=== PATIENT | male | born 1945 | race Caucasian/White ===

== ENCOUNTER 2020-01-17 02:19 | Outpatient (CLI) | payer MEDICARE, SELFPAY ==
[2020-01-17 17:02] LABS: SARS-CoV-2 RNA PCR Negative
== END 2020-01-17 02:20 | disposition home or self-care (01) ==
LOC: ANHCOVIDDT 02:19
PROVIDERS: PCP Family Medicine; Visit Provider Internal Medicine Gastroenterology
DX: Z01.812 Encounter for preprocedural laboratory examination (principal); Z20.828 Contact with and (suspected) exposure to other viral communicable diseases
CPT/HCPCS: 87635; C9803; U0003

== ENCOUNTER 2020-01-19 00:35 | Day surgery (SDC) | payer MEDICARE, SELFPAY ==
[2020-01-09 14:24] VITALS: BMI 42.6
[2020-01-19 06:31] VITALS: BP 149/92; PULSE 70; RESP 16; TEMP 36.7; O2SAT 95; BMI 42.5
[2020-01-19] MEDS: LACTATED RINGERS 1,000 ML 150 ML IV CONT (06:48)
[2020-01-19 06:51] LABS: Glucose Point of Care 166 (65-105)
--- NOTE | 2020-01-19 07:37 | WPDGICN ---
Assessment and Plan Assessment and plan (1) History of colon polyps: Code(s): Z86.010 - Personal history of colonic polyps Status: Acute Assessment and Plan: Surveillance colonoscopy is recommended at this time in 5 years in the future because of his history of adenomatous colon polyps. (2) Morbid obesity with BMI of 40.0-44.9, adult: Code(s): E66.01 - Morbid (severe) obesity due to excess calories; Z68.41 - Body mass index (BMI) 40.0-44.9, adult Status: Acute (3) Diabetes mellitus: Qualifiers: Diabetes mellitus type: type 2 Diabetes mellitus rodent exterminator insulin use: without snf use Diabetes mellitus complication status: with hyperglycemia Qualified Code(s): E11.65 - Type 2 diabetes mellitus with hyperglycemia Code(s): E11.9 - Type 2 diabetes mellitus without complications Status: Acute (4) HTN (hypertension): Qualifiers: Hypertension type: essential hypertension Qualified Code(s): I10 - Essential (primary) hypertension Code(s): I10 - Essential (primary) hypertension Status: Acute GI Consult Note Consult date/time: 01/19/20 07:37 HPI: Dar Corcoran is a 74 year old male Presents for surveillance colonoscopy. Patient has a history of adenomatous colon polyps removed by colonoscopy in 2015. He states that his current weight appetite bowel movements are normal. Denies abdominal pain. He has had no bleeding. He reports that his bowel habits are regular and normal. Review of Systems Review of Systems: All systems reviewed & are unremarkable except as noted in HPI and below PMFSH Past Medical History Medical History BPH (benign prostatic hyperplasia) Diabetes mellitus GERD (gastroesophageal reflux disease) HLD (hyperlipidemia) HTN (hypertension) Mixed hyperlipidemia Morbid obesity with BMI of 40.0-44.9, adult Onychomycosis Primary hypertension Prostate cancer screening Vertigo Surgical History Surgical History H/O prostatectomy Hx of appendectomy Hx of tonsillectomy Family History Family History Father Family history of lung cancer Other Diabetes mellitus Social History Social History Years smoked: 1,990 Smoking status: Former smoker Tobacco type: cigarettes Second hand tobacco smoke exposure: No Smoking end date: 05/11/89 Alcohol intake: never Substance use: never Substance use type: does not use Gender identity (if verbalized by the patient): Male Spiritual care concerns: No Meds Home Medications and Allergies Home Medications Medication Instructions Recorded Confirmed Type atorvastatin 10 mg tablet 10 mg PO DAILY #90 tablet 05/10/19 01/19/20 Rx finasteride 5 mg tablet 5 mg PO DAILY 05/10/19 01/19/20 History losartan 100 1 tablet PO DAILY 05/10/19 01/19/20 History mg-hydrochlorothiazide 12.5 mg tablet solifenacin 5 mg tablet 5 mg PO DAILY 05/10/19 01/19/20 History omeprazole 20 mg tablet,delayed 20 mg PO DAILY #90 tablet 08/24/19 01/19/20 Rx release sitagliptin 50 mg tablet 50 mg PO DAILY #90 tablet 12/22/19 01/19/20 Rx tadalafil 5 mg PO DAILY 01/09/20 01/19/20 History terbinafine HCl 250 mg PO DAILY 01/09/20 01/19/20 History meclizine 25 mg PO PRN PRN 01/19/20 01/19/20 History Allergies Allergy/AdvReac Type Severity Reaction Status Date / Time No Known Allergies Allergy Verified 01/19/20 06:27 Vital Signs Vital Signs - 24 hr 01/19/20 06:31 Temperature 98.0 F Pulse Rate 70 Respiratory Rate 16 Blood Pressure 149/92 H Pulse Oximetry 95 Exam Narrative: Exam Narrative: Physical exam reveals patient to be alert. Vital signs stable. HEENT exam unremarkable. He is anicteric. Lungs are clear to auscultation and percussion. Heart is with
--- NOTE | 2020-01-19 07:52 | WPDANESEPPF ---
Anes - Initial Pre Proc Eval Procedure: Operation Date: 01/19/20 08:00 Proposed Procedures p Screening Colonoscopy - Jerry Rodriguez MD Date/Time: 01/19/20 07:52 Surgeon: Jerry Rodriguez MD Pre Op Diagnosis: hx colon polyp Patient Data Age: 74 Gender: M Height: 1.73 m Weight: 126.7 kg Last Vital Signs Temp 36.7 C 01/19/20 06:31 Pulse 70 01/19/20 06:31 Resp 16 01/19/20 06:31 BP 149/92 H 01/19/20 06:31 Pulse Ox 95 01/19/20 06:31 Allergies Allergy/AdvReac Type Severity Reaction Status Date / Time No Known Allergies Allergy Verified 01/19/20 06:27 Home Medications Medication Instructions Recorded Confirmed Type atorvastatin 10 mg tablet 10 mg PO DAILY #90 tablet 05/10/19 01/19/20 Rx finasteride 5 mg tablet 5 mg PO DAILY 05/10/19 01/19/20 History losartan 100 1 tablet PO DAILY 05/10/19 01/19/20 History mg-hydrochlorothiazide 12.5 mg tablet solifenacin 5 mg tablet 5 mg PO DAILY 05/10/19 01/19/20 History omeprazole 20 mg tablet,delayed 20 mg PO DAILY #90 tablet 08/24/19 01/19/20 Rx release sitagliptin 50 mg tablet 50 mg PO DAILY #90 tablet 12/22/19 01/19/20 Rx tadalafil 5 mg PO DAILY 01/09/20 01/19/20 History terbinafine HCl 250 mg PO DAILY 01/09/20 01/19/20 History meclizine 25 mg PO PRN PRN 01/19/20 01/19/20 History Laboratory Tests 01/19/20 06:42 POC Capillary Glucose 166 mg/dl H mg/dl (65-105) Patient hx anesthesia problems: none Family hx anesthesia problems: none PMFSH Past Medical History Medical History BPH (benign prostatic hyperplasia) Diabetes mellitus GERD (gastroesophageal reflux disease) HLD (hyperlipidemia) HTN (hypertension) Mixed hyperlipidemia Morbid obesity with BMI of 40.0-44.9, adult Onychomycosis Primary hypertension Prostate cancer screening Vertigo Surgical History Surgical History H/O prostatectomy Hx of appendectomy Hx of tonsillectomy Family History Family History Father Family history of lung cancer Other Diabetes mellitus Social History Social History Years smoked: 1,990 Smoking status: Former smoker Tobacco type: cigarettes Second hand tobacco smoke exposure: No Smoking end date: 05/11/89 Alcohol intake: never Substance use: never Substance use type: does not use Gender identity (if verbalized by the patient): Male Spiritual care concerns: No Anes - Eval Final PreProcedure Day of Procedure 01/19/20 07:52 Patient weight: morbidly obese Heart: regular rate and rhythm Lungs: clear to auscultation and normal air movement Airway: Mallampati scale class II Neurological: alert and oriented Last oral intake: >/= 8 hours ASA classification: III Emergent: no Anesthetic plan: proceed Anesthesia type and monitoring: general GIVS Informed Consent: The patient's anesthetic plan and its attendant risks and benefits were discussed with the patient/family/POA. Questions were solicited and answers provided to the satisfaction of the patient/family/POA.
[2020-01-19 08:32] VITALS: BP 157/86; PULSE 67; RESP 21; O2SAT 98
[2020-01-19 08:42] VITALS: BP 163/92; PULSE 66; RESP 23; O2SAT 99
[2020-01-19 08:52] VITALS: BP 160/91; PULSE 66; RESP 21; O2SAT 99
[2020-01-19 09:01] VITALS: BP 157/91; PULSE 59; RESP 21; O2SAT 99
== END 2020-01-19 09:30 | disposition home or self-care (01) ==
PROVIDERS: PCP Family Medicine; Visit Provider Internal Medicine Gastroenterology
PROC: 0DJD8ZZ Inspection of Lower Intestinal Tract, Via Natural or Artificial Opening Endoscopic (ICD-10-PCS; CPT 45378; principal; 2020-01-19 08:00)
DX: Z12.11 Encounter for screening for malignant neoplasm of colon (principal); D12.3 Benign neoplasm of transverse colon; D12.5 Benign neoplasm of sigmoid colon; K57.30 Diverticulosis of large intestine without perforation or abscess without bleeding; K64.8 Other hemorrhoids; I10 Essential (primary) hypertension; E11.9 Type 2 diabetes mellitus without complications; E66.01 Morbid (severe) obesity due to excess calories; Z68.41 Body mass index [BMI] 40.0-44.9, adult; N40.0 Benign prostatic hyperplasia without lower urinary tract symptoms; K21.9 Gastro-esophageal reflux disease without esophagitis; E78.2 Mixed hyperlipidemia; Z87.891 Personal history of nicotine dependence; Z79.84 Long term (current) use of oral hypoglycemic drugs
CPT/HCPCS: 45385; 88305; J2704; J7120

== ENCOUNTER 2020-06-29 15:44 | Outpatient (CLI) | payer MEDICARE, SELFPAY ==
--- NOTE | ~2020-06-29 | US_ITS ---
US venous doppler [facility] DATE: 06/29/2020 16:23 INDICATION: Recent fall with bruising and indurated area along the medial left leg above knee TECHNIQUE: Real-time and color flow imaging and Doppler analysis of the veins of the lower extremitie s COMPARISON: None FINDINGS: The left greater saphenous vein is patent. There is spontaneous and phasic flow and normal augmentation and color flow signal and normal compression of the left common femoral, femoral, poplit eal and peroneal and posterior tibial veins. There is a complex approximately 18 x 23 x 42 mm area medially above the knee at the area of clinical complaint, likely a posttraumatic hematoma. IMPRESSION: No evidence of deep venous thrombosis of left lower extremity Probable hematoma superior medial to the knee Reviewed, dictated and finalized at Location A. Reviewed, dictated and finalized at location B. ERSE ROD ASSEMBLER
== END 2020-06-29 15:45 | disposition home or self-care (01) ==
PROVIDERS: PCP Physician Assistant; Visit Provider Family Medicine
DX: M79.605 Pain in left leg (principal); R60.9 Edema, unspecified
CPT/HCPCS: 93971

== ENCOUNTER 2022-03-12 14:55 | Outpatient (CLI) | payer MEDICARE, SELFPAY ==
[2022-03-12 15:52] LABS: Influenza A QL RT-PCR Negative (Negative); Influenza B QL RT-PCR Negative (Negative); SARS-CoV-2 RNA PCR Negative
== END 2022-03-12 14:56 | disposition home or self-care (01) ==
PROVIDERS: PCP Family Medicine; Visit Provider Physician Assistant
DX: R50.9 Fever, unspecified (principal); Z20.822 Contact with and (suspected) exposure to COVID-19
CPT/HCPCS: 87502; U0003; U0005

== ENCOUNTER 2024-04-13 15:34 | Outpatient (CLI) | payer MEDICARE, SELFPAY ==
--- NOTE | ~2024-04-13 | XR_ITS ---
3 VIEWS LUMBAR SPINE Ordering provider: Shayna Miller MD History: . M54.50 - Low back pain, unspecified . Comparison: None. FINDINGS: VERTEBRAL BODIES: No visible fracture or subluxation. Degenerative changes of the spine. Mild levosco liosis. DISK SPACES: Severe narrowing of the disc L5-S1. Mild narrowing of the disc L4-L5. Facet joint diseas e at the level of L5-S1. SOFT TISSUES: Atherosclerotic changes of the aorta. IMPRESSION: No acute osseous abnormality lumbar spine. Degenerative disc disease at the level of L4-L5 and L5-S1. Reviewed, dictated and finalized at location A. AGE BROKER DEVELOPER
== END 2024-04-13 15:35 | disposition home or self-care (01) ==
LOC: ANHIMG 15:37
PROVIDERS: PCP Family Medicine; Visit Provider Family Medicine
DX: M51.369 Other intervertebral disc degeneration, lumbar region without mention of lumbar back pain or lower extremity pain (principal); M51.379 Other intervertebral disc degeneration, lumbosacral region without mention of lumbar back pain or lower extremity pain
CPT/HCPCS: 72110

== ENCOUNTER 2024-07-05 14:55 | Outpatient (CLI) | payer MEDICARE, SELFPAY ==
[2024-07-05 15:47] LABS: Influenza A QL RT-PCR Positive (Negative); Influenza B QL RT-PCR Negative (Negative); RSV RNA, RT-PCR Negative (Negative); SARS-CoV-2 RNA PCR Negative (Negative)
--- OUTSIDE RECORDS SUMMARY | 2024-07-05 17:23 | XMS_ITS | Referral Summary ---
Author Organization [facility] [employer] Address [address] [place] [address] Care Team Providers Care Hat Blocker Name Role Phone Rodrigo Leal MD Primary Care Provider [phone] Source Comments [facility] [employer],non-owned Affiliates and Associated Physician Practices is amultiple site organization consisting of ambulatory clinics and hospital sitesin [place], [place], [place] and [place]. This disclosure is being madepursuant to the Care Everywhere program and may not contain all information available regarding this patient. Last updated 18.[facility] [employer] Allergies No known active allergies Medications * Be aware that medications may not be up to date on this document. Alwaysverify current medications with the patient. Medication Sig Dispensed Refills Start Date End Date Status OMEPRAZOLE PO Active losartan-hydroCHLOROt hiazide (HYZAAR) 100-12.5 MG tablet Take 1 Tab by mouth once daily Active SIMVASTATIN PO Active solifenacin (VESICARE) 5 MG tablet Take 5 mg by mouth once daily Active FINASTERIDE PO Active tadalafil (CIALIS) 5 MG tablet Take 5 mg by mouth once as needed Active fluticasone propionate (FLONASE) 50 MCG/ACT nasal sprayIndications:Dysf unction of Eustachian tube, bilateral [place] 2 Sprays into each nostril once daily 1 Bottle 12/11/2016 Active Social History Tobacco Use Types Packs/Day Years Used Date Smoking Tobacco: Never Smokeless Tobacco: Never Sex and Gender Information Value Date Recorded Sex Assigned at Not on file Gender Identity Not on file Sexual Orientation Not on file Last Filed Vital Signs Vital Sign Reading Time Taken Comments Blood Pressure 140/80 12/11/2016 2:20 PM CDT Pulse 65 12/11/2016 2:20 PM CDT Temperature 36.7 C (98.1 F) 12/11/2016 2:20 PM CDT Respiratory Rate 16 12/11/2016 2:20 PM CDT Oxygen Saturation 96% 12/11/2016 2:20 PM CDT Inhaled Oxygen Concentration - - Weight 122.5 kg (270 lb) 12/11/2016 2:20 PM CDT Height 175.3 cm (5' 9 ) 12/11/2016 2:20 PM CDT Body Mass Index 39.87 12/11/2016 2:20 PM CDT Plan of Treatment Not on file Care Teams Hat Blocker Relationship Specialty Start Date End Date Rodrigo Leal MD [address] [place] [address] PCP - General Family Medicine 12/11/16
--- OUTSIDE RECORDS SUMMARY | 2024-07-05 17:23 | XMS_ITS | Patient Health Summary ---
Author Organization [facility] [employer] Address [address] [place] [address] Care Team Providers Care Weaving Supervisor Name Role Phone Rodrigo Leal MD Primary Care Provider [phone] Note from [facility],non-owned Affiliates and Associated Physician Practices is amultiple site organization consisting of ambulatory clinics and hospital sitesin [place], [place], [place] and [place]. This disclosure is being madepursuant to the Care Everywhere program and may not contain all information available regarding this patient. Last updated 18.[facility] [employer] Allergies No known active allergies Medications * Be aware that medications may not be up to date on this document. Alwaysverify current medications with the patient. * OMEPRAZOLE PO * losartan-hydroCHLOROthiazide (HYZAAR) 100-12.5 MG tablet Take 1 Tab by mouth once daily * SIMVASTATIN PO * solifenacin (VESICARE) 5 MG tablet Take 5 mg by mouth once daily * FINASTERIDE PO * tadalafil (CIALIS) 5 MG tablet Take 5 mg by mouth once as needed * fluticasone propionate (FLONASE) 50 MCG/ACT nasal spray(Started 12/11/2016) [place] 2 Sprays into each nostril once daily Social History Tobacco Use Types Packs/Day Years [...] Mass Index 39.87 12/11/2016 2:20 PM CDT Procedures * DERMATOPATHOLOGY(Performed 01/23/2011) Results * PATHOLOGY TISSUE FOR DERMATOLOGY (01/23/2011 12:00 AM CDT) Result CASE: PATIENT: CLARA DAILY PATHOLOGIC DIAGNOSIS: 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 Jaret Mims, is 1 slide(s) labeled [id number], [id number]. R/O SCCA. All slides returned. 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 The aggregates are composed of squamoid cells showing variable glycogen vacuolation (pale-staining cytoplasm). In addition, there are strands of similar pale staining cells within a fibrotic stroma. The tumor cells are reactive with CD34 and nonreactive with BerEp4. The lesion is not present at the sampled margin of the specimen. Final Diagnosis performed by Adri Ramsay M.D. Electronically signed 01/27/2011 5:13:15PM [facility] Comment: Performed at: Dermatopathology Laboratory [facility] - Department of Dermatology [address] [place] [address] Phone number: [phone] Toll Free: [phone] FAX: [phone] 01/23/2011 01/23/2011 Jaret Mims MD LAB - PATHOLOGY/CYTO LOGY ORDERABLES [facility] [address] Floor Lab [address] [phone] Care Teams Weaving Supervisor Relationship Specialty Start Date End Date Rodrigo Leal MD [address] [place], [place] [id number] PCP - General Family Medicine 12/11/16
--- OUTSIDE RECORDS SUMMARY | 2024-07-05 17:23 | XMS_ITS | Clinical Summary ---
Author Organization [facility] [employer] Address [address] [place] [address] Care Team Providers Care Matrix Drier Tender Name Role Phone Rodrigo Leal MD Primary Care Provider [phone] Source Comments [facility] [employer],non-owned Affiliates and Associated Physician Practices is amultiple site organization consisting of ambulatory clinics and hospital sitesin [place], [place], [place] and [place]. This disclosure is being madepursuant to the Care Everywhere program and may not contain all information available regarding this patient. Last updated 18.[employer] Allergies No known active allergies Medications * [...] nasal sprayIndications:Dysf unction of Eustachian tube, bilateral [place] 2 Sprays into each nostril once daily [...] 12/11/2016 2:20 PM CDT Plan of Treatment Health Maintenance Due Date Last Done Comments DTAP/TDAP/TD VACCINES (1 - Tdap) 01/30/1964 PNEUMOCOCCAL VACCINE 50+ (1 of 1 - PCV) 1995 ZOSTER VACCINE (1 of 2) 1995 Respiratory Syncytial Virus (RSV) Vaccine Pt: or over 60 yrs (1 - 1-dose 75+ series) 01/30/2020 COVID-19 VACCINE ( - 2023-2 5 season) 2024 INFLUENZA VACCINE (#1) 2024 DEPRESSION SCREENING 05/11/2024 MEDICARE AWV CALENDAR YEAR 2024 HEPATITIS B VACCINE Aged Out No longe r eligible based on patient's age to complete this topic HIB VACCINE Aged Out No longer eligi ble based on patient's age to complete this topic HPV VACCINE Aged Out No longer eligi ble based on patient's age to complete this topic MENINGOCOCCAL (Group B) VACCINE Aged Out No longer eligible based on patient's age to complete this topic MENINGOCOCCAL VACCINE Aged Out No lakesha sadie eligible based on patient's age to complete this topic Care Teams Matrix Drier Tender Relationship Specialty Start Date End Date Rodrigo Leal MD [address] [facility] [place] [address] PCP - General Family Medicine 12/11/16
== END 2024-07-05 14:56 | disposition home or self-care (01) ==
LOC: ANHLAB 14:56
PROVIDERS: PCP Family Medicine; Visit Provider Family Medicine
DX: J06.9 Acute upper respiratory infection, unspecified (principal); Z20.822 Contact with and (suspected) exposure to COVID-19
CPT/HCPCS: 87637

== ENCOUNTER 2025-01-20 02:14 | Day surgery (SDC) | payer MEDICARE, SELFPAY ==
[2025-01-11 15:28] VITALS: BMI 41.8
--- OUTSIDE RECORDS SUMMARY | 2025-01-20 02:16 | XMS_ITS | Clinical Summary ---
Author Organization [facility] [employer] Address [address] [place] [address] Care Team Providers Care Underwear Finisher Name Role Phone Rodrigo Leal MD Primary Care Provider [phone] Source Comments [facility] [employer],non-owned Affiliates and Associated Physician Practices is amultiple site organization consisting of ambulatory clinics and hospital sitesin [place], [place], [place] and [place]. This disclosure is being madepursuant to the Care Everywhere program and may not contain all information available regarding this patient. Last updated 18.[employer] [facility] Allergies No known active allergies Medications * Be aware that medications may not be up to date on this document. Alwaysverify current medications with the patient. OMEPRAZOLE PO Active losartan-hydroC HLOROthiazide (HYZAAR) 100-12.5 MG tablet Take 1 Tab by mouth once daily Active SIMVASTATIN PO Activ e solifenacin (VESICARE) 5 MG tablet Take 5 mg by mouth once daily Active FINASTERIDE PO Activ e tadalafil (CIALIS) 5 MG tablet Take 5 mg by mouth once as needed Active fluticasone propionate (FLONASE) 50 MCG/ACT nasal sprayIndication s:Dysfunction of Eustachian tube, bilateral [place] 2 Sprays into each nostril once daily 1 Bottle 12/11/2016 Active Social History Tobacco Use Types Packs/Day Years Used Date Smoking Tobacco: Never Smokeless Tobacco: Never Sex and Gender Information Value Date Recorded Sex Assigned at Not on file 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 Gender Identity Not on file Sexual Orientation [...] 2:20 PM CDT Height 175.3 cm (5' 9) 12/11/2016 2:20 PM CDT Body Mass Index 39.87 12/11/2016 2:20 PM CDT Plan of Treatment Health Maintenance Due Date Last Done Comments DTAP/TDAP/TD VACCINES (1 - Tdap) 01/30/1964 PNEUMOCOCCAL VACCINE 50+ (1 of 1 - PCV) 1995 ZOSTER VACCINE (1 of 2) 1995 Respiratory Syncytial Virus (RSV) Vaccine Pt: or over 60 yrs (1 - 1-dose 75+ series) 01/30/2020 DEPRESSION SCREENING 05/11/2024 COVID-19 VACCINE (1 - 2023-2 5 season) 2025 INFLUENZA VACCINE (#1) 2025 HEPATITIS B VACCINE Aged Out No longe r eligible based on patient's age to complete this topic HIB VACCINE Aged Out No longer eligi ble based on patient's age to complete this topic HPV VACCINE Aged Out No longer eligi ble based on patient's age to complete this topic MENINGOCOCCAL (Group B) VACC INE SHARED DECISION-MAKING Aged Out No longer eligibl e based on patient's age to complete this topic MENINGOCOCCAL GROUPS A/C/Y/W VACCINE Aged Out No longer eligible b ased on patient's age to complete this topic Insurance MANAGED MEDICARE ADV [facility] MANAGED MEDICARE ADV Care Teams Underwear Finisher Relationship Specialty Start Date End Date Rodrigo Leal MD [address] [place] [address] PCP - General Family Medicine 12/11/16
[2025-01-20 10:16] VITALS: BP 151/90; PULSE 62; RESP 18; TEMP 36.6; O2SAT 97; BMI 39.9
[2025-01-20] MEDS: LACTATED RINGERS 1,000 ML 150 ML IV CONT (10:24)
--- NOTE | 2025-01-20 10:36 | PM.HPGS ---
History of Present Illness History of Present Illness Consent: Risks, benefits, and alternatives have been discussed and questions answered. Patient agrees to proceed with procedure. Chief complaint: Personal history of colon polyps, unspecified Narrative: Dar Corcoran is a 79 year old male with colon polyp in 2019 Review of Systems Review of Systems: All systems reviewed & are unremarkable except as noted in HPI and below PMFSH Past Medical History Medical History (Updated 08/07/24 @ 21:39 by Shayna Miller MD) Iron deficiency anemia Onychomycosis Morbid obesity with BMI of 40.0-44.9, adult Prostate cancer screening BPH (benign prostatic hyperplasia) Mixed hyperlipidemia Primary hypertension Vertigo Diabetes mellitus GERD (gastroesophageal reflux disease) HTN (hypertension) HLD (hyperlipidemia) Surgical History Surgical History H/O prostatectomy Hx of appendectomy Hx of tonsillectomy Family History Family History Father Family history of lung cancer Other Diabetes mellitus Social History Social History Years smoked: 10 Smoking status: Former smoker Tobacco type: cigarettes Second hand tobacco smoke exposure: No Smoking end date: 05/11/89 Alcohol intake: never Substance use: never Substance use type: does not use Lack of Transportation: No Lack of Food: Never True Current Housing: I Have Housing Concerned About Future Housing: No Difficulty Paying Gas/Electric Bills: No Difficulty Paying for Meds: No Currently Unemployed: No Education: Bachelor's Degree Difficulty w/ Childcare or Family Care: No Living arrangements: alone Occupation/Education: retired Gender identity (if verbalized by the patient): Male Spiritual care concerns: No Meds Home Medications and Allergies Home Medications ?Medication ?Instructions ?Recorded ?Confirmed ?Type finasteride 5 mg tablet 5 mg PO DAILY 05/10/19 01/20/25 History solifenacin 5 mg tablet (Vesicare) 5 mg PO DAILY 05/10/19 01/20/25 History tadalafil 5 mg tablet 5 mg PO DAILY 01/09/20 01/11/25 History ascorbic acid (vitamin C) 1,000 mg 1 g PO DAILY 09/06/20 01/20/25 History tablet cholecalciferol (vitamin D3) 125 125 mcg PO DAILY 09/06/20 01/20/25 History mcg (5,000 unit) capsule meclizine 25 mg tablet 25 mg PO DAILY 09/06/20 01/20/25 History multivitamin 1 tablet PO DAILY 09/06/20 01/20/25 History omega-3 fatty acids 1,000 mg 1,000 mg PO DAILY 09/06/20 01/20/25 History capsule (Fish Oil Concentrate) vitamin B complex (B 1 tablet PO DAILY 09/06/20 01/20/25 History Complex-Vitamin B12 tablet) zinc acetate 50 mg (zinc) capsule 50 mg PO DAILY 09/06/20 01/20/25 History (Galzin) diabetic shoe #1 ea 04/22/23 08/04/24 Rx metformin 500 mg tablet,extended 500 mg PO BID #180 tabs 05/22/23 01/11/25 Rx release 24 hr losartan 100 1 tablet PO DAILY #90 tabs 08/12/24 01/20/25 Rx mg-hydrochlorothiazide 12.5 mg tablet glimepiride 2 mg tablet See Rx Instructions .Route 10/17/24 01/20/25 Rx .COMPLEX #90 tabs atorvastatin 10 mg tablet See Rx Instructions .Route 10/21/24 01/20/25 Rx .COMPLEX #90 tabs empagliflozin 10 mg tablet 10 mg PO DAILY #90 tabs 11/18/24 01/20/25 Rx (Jardiance) omeprazole 20 mg capsule,delayed 20 mg PO DAILY #90 caps 11/29/24 01/11/25 Rx release sitagliptin phosphate 100 mg 100 mg PO DAILY #90 tabs 11/29/24 01/11/25 Rx tablet (Januvia) Allergies Allergy/AdvReac Type Severity Reaction Status Date / Time No Known Allergies Allergy Verified 01/20/25 10:14 Vital Signs Vital Signs - 24 hr 01/20/25 10:16 Temperature 97.9 F Pulse Rate 62 Respiratory Rate 18 Blood Pressure 151/90 H Pulse Oximetry 97 Oxygen Delivery Room Air Exam Const: General: comfortable and no acute distress HENMT: Face/Nose/Sinus: Normal nares present Eyes: General: appearance normal, both eyes and all related structures Neck: Neck: no JVD Resp: Auscultation: clear to auscultation bilaterally Cardio: Rate: regular rate Rhythm: regular rhythm GI: Inspection: non-distended GI Palp: Yes Soft to palpation Skin: General skin exam: normal color Neuro: Speech: normal speech Extrem: General: normal to inspection Psych: Mental Status: mental status grossly normal Assessment and Plan Assessment and plan (1) History of colon polyps: Code(s): Z86.010 - Personal history of colon polyps Status: Acute Assessment and Plan: colonoscopy
--- NOTE | 2025-01-20 10:41 | WPDANESEPPF ---
Anes - Initial Pre Proc Eval Procedure: Operation Date: 01/20/25 11:30 Proposed Procedures p Diagnostic Colonoscopy - Jaleel Myers MD Date/Time: 01/20/25 10:41 Surgeon: Jaleel Myers MD Pre Op Diagnosis: Personal history of colon polyps, unspecified Patient Data Age: 79 Gender: M Height: 1.73 m Weight: 119.3 kg Last Vital Signs Temp 36.6 C 01/20/25 10:16 Pulse 62 01/20/25 10:16 Resp 18 01/20/25 10:16 BP 151/90 H 01/20/25 10:16 Pulse Ox 97 01/20/25 10:16 O2 Del Method Room Air 01/20/25 10:16 Allergies Allergy/AdvReac Type Severity Reaction Status Date / Time No Known Allergies Allergy Verified 01/20/25 10:14 Home Medications ?Medication ?Instructions ?Recorded ?Confirmed ?Type finasteride 5 mg tablet 5 mg PO DAILY 05/10/19 01/20/25 History solifenacin 5 mg tablet (Vesicare) 5 mg PO DAILY 05/10/19 01/20/25 History tadalafil 5 mg tablet 5 mg PO DAILY 01/09/20 01/11/25 History ascorbic acid (vitamin C) 1,000 mg 1 g PO DAILY 09/06/20 01/20/25 History tablet cholecalciferol (vitamin D3) 125 125 mcg PO DAILY 09/06/20 01/20/25 History mcg (5,000 unit) capsule meclizine 25 mg tablet 25 mg PO DAILY 09/06/20 01/20/25 History multivitamin 1 tablet PO DAILY 09/06/20 01/20/25 History omega-3 fatty acids 1,000 mg 1,000 mg PO DAILY 09/06/20 01/20/25 History capsule (Fish Oil Concentrate) vitamin B complex (B 1 tablet PO DAILY 09/06/20 01/20/25 History Complex-Vitamin B12 tablet) zinc acetate 50 mg (zinc) capsule 50 mg PO DAILY 09/06/20 01/20/25 History (Galzin) diabetic shoe #1 ea 04/22/23 08/04/24 Rx metformin 500 mg tablet,extended 500 mg PO BID #180 tabs 05/22/23 01/11/25 Rx release 24 hr losartan 100 1 tablet PO DAILY #90 tabs 08/12/24 01/20/25 Rx mg-hydrochlorothiazide 12.5 mg tablet glimepiride 2 mg tablet See Rx Instructions .Route 10/17/24 01/20/25 Rx .COMPLEX #90 tabs atorvastatin 10 mg tablet See Rx Instructions .Route 10/21/24 01/20/25 Rx .COMPLEX #90 tabs empagliflozin 10 mg tablet 10 mg PO DAILY #90 tabs 11/18/24 01/20/25 Rx (Jardiance) omeprazole 20 mg capsule,delayed 20 mg PO DAILY #90 caps 11/29/24 01/11/25 Rx release sitagliptin phosphate 100 mg 100 mg PO DAILY #90 tabs 11/29/24 01/11/25 Rx tablet (Januvia) Laboratory Tests 01/20/25 10:10 POC Capillary Glucose 173 H mg/dl (65-105) Patient hx anesthesia problems: none Family hx anesthesia problems: none Results Review: All pre-operative results and documents have been reviewed as part of the pre-operative evaluation. [facility] Past Medical History Medical History (Updated 08/07/24 @ 21:39 by Shayna Miller MD) Iron deficiency anemia Onychomycosis Morbid obesity with BMI of 40.0-44.9, adult Prostate cancer screening BPH (benign prostatic hyperplasia) Mixed hyperlipidemia Primary hypertension Vertigo Diabetes mellitus GERD (gastroesophageal reflux disease) HTN (hypertension) HLD (hyperlipidemia) Surgical History Surgical History H/O prostatectomy Hx of appendectomy Hx of tonsillectomy Family History Family History Father Family history of lung cancer Other Diabetes mellitus Social History Social History Years smoked: 10 Smoking status: Former smoker Tobacco type: cigarettes Second hand tobacco smoke exposure: No Smoking end date: 05/11/89 Alcohol intake: never Substance use: never Substance use type: does not use Lack of Transportation: No Lack of Food: Never True Current Housing: I Have Housing Concerned About Future Housing: No Difficulty Paying Gas/Electric Bills: No Difficulty Paying for Meds: No Currently Unemployed: No Education: Bachelor's Degree Difficulty w/ Childcare or Family Care: No Living arrangements: alone Occupation/Education: retired Gender identity (if verbalized by the patient): Male Spiritual care concerns: No Anes - Eval Final PreProcedure Day of Procedure 01/20/25 10:41 Patient weight: morbidly obese Heart: regular rate and rhythm Lungs: clear to auscultation Airway: Mallampati scale class II Neurological: alert and oriented Last oral intake: >/= 8 hours ASA classification: III Emergent: no Anesthetic plan: proceed Anesthesia type and monitoring: general GIVS and standard monitoring Results Review: All pre-operative results and documents have been reviewed as part of the pre-operative evaluation. Informed Consent: The patient's anesthetic plan and its attendant risks and benefits were discussed with the patient/family/POA. Questions were solicited and answers provided to the satisfaction of the patient/family/POA.
--- NOTE | 2025-01-20 10:50 | S_PTH ---
PATIENT: Dar Corcoran LOC: [facility]#:[id number] AGE/SX: 79/M ROOM: RE01/20/[address]: Jaleel Myers MD : 1945 BED: DIS: 01/20/2025 SPEC #: [id number] RECD: 01/20/25 13:23 STATUS: BESS REQ #: [id number] DANIEL: 01/20/25 10:[address]: Jaleel Myers DEPT: [facility] Surgical RECD BY: Matilde Ang ENTERED: 01/20/25 13:23 SP TYPE: Surgical OTHR DR: Shayna Miller, Tissues: A - Colon Polypectomy Procedures: Hematoxylin and Eosin Stain Gross and Microscopic Level 4
[2025-01-20 10:52] VITALS: BP 122/57; PULSE 67; RESP 22; O2SAT 96
[2025-01-20 11:02] VITALS: BP 113/61; PULSE 63; RESP 22; O2SAT 96
[2025-01-20 11:12] VITALS: BP 127/62; PULSE 60; RESP 22; O2SAT 96
== END 2025-01-20 11:28 | disposition home or self-care (01) ==
PROVIDERS: PCP Family Medicine; Referring Provider Family Medicine; Visit Provider Internal Medicine Gastroenterology
PROC: 0DJD8ZZ Inspection of Lower Intestinal Tract, Via Natural or Artificial Opening Endoscopic (ICD-10-PCS; CPT 45378; principal; 2025-01-20 11:30)
DX: Z12.11 Encounter for screening for malignant neoplasm of colon (principal); D12.2 Benign neoplasm of ascending colon; K64.8 Other hemorrhoids; K57.30 Diverticulosis of large intestine without perforation or abscess without bleeding; E78.2 Mixed hyperlipidemia; I10 Essential (primary) hypertension; E11.9 Type 2 diabetes mellitus without complications; K21.9 Gastro-esophageal reflux disease without esophagitis; D50.9 Iron deficiency anemia, unspecified; N40.0 Benign prostatic hyperplasia without lower urinary tract symptoms; E66.01 Morbid (severe) obesity due to excess calories; Z68.41 Body mass index [BMI] 40.0-44.9, adult; Z79.84 Long term (current) use of oral hypoglycemic drugs; Z98.890 Other specified postprocedural states; Z87.891 Personal history of nicotine dependence; Z80.1 Family history of malignant neoplasm of trachea, bronchus and lung
CPT/HCPCS: 45385; 82948; 88305; J2704; J7120